=== PATIENT | male | born 1970 | race Caucasian/White ===

== ENCOUNTER 2019-03-03 18:51 | Emergency (ER) | payer BC, OTHER ==
[2019-03-03 19:09] VITALS: BP 154/89
[2019-03-03] MEDS ORDERED: Azithromycin TAB* 250 MG PO ONE (19:42)
[2019-03-03] MEDS ORDERED: guaiFENesin/CODIEN 100MG-10MG* 5 ML UDC PO ONE (19:43)
--- NOTE | 2019-03-03 19:58 | UC ---
Respiratory Complaint HPI - HPI Summary HPI Summary: 48 year old male with PMH + for HTN, presents with cough, chills, tactile fever , rib pain x 3 week. S/S wax and wane, however increasing since 3 weeks ago with worsening of cough. + productive over past 2-3 days with dark yellow sputum. no h/o PNA, asthma. no exposure to bird/ bat feces. 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[employer], [employer] computer science teacher - History of Current Complaint Chief Complaint: UCGeneralIllness Stated Complaint: COUGH/CONGESTION Time Seen by Provider: 03/03/19 19:23 Hx Obtained From: Patient Onset/Duration: Sudden Onset, Lasting Weeks, Still Present Timing: Constant Severity Currently: None Pain Intensity: 0 Pain Scale Used: 0-10 Numeric Character: Cough: Productive - yellow Alleviating Factors: Upright Position Associated Signs And Symptoms: Positive: Chills, Pleuritic Chest Pain, URI, Nasal Congestion - Allergies/Home Medications Allergies/Adverse Reactions: Allergies Allergy/AdvReac Type Severity Reaction Status Date / Time No Known Allergies Allergy Verified 03/03/19 19:08 Home Medications: Home Medications Ramipril 1.25 mg PO DAILY 03/03/19 [History Confirmed 03/03/19] PMH/Surg Hx/FS Hx/Imm Hx Previously Healthy: Yes - Surgical History Surgical History: Yes Surgery Procedure, Year, and Place: right thumb surgery , appy, nasal surgery d/ t broken x3 - Family History Known Family History: Positive: Non-Contributory - Social History Alcohol Use: Occasionally Substance Use Type: None Smoking Status (MU): Never Smoked Tobacco Review of Systems All Other Systems Reviewed And Are Negative: Yes Constitutional: Positive: Chills, Fatigue ENT: Positive: Sinus Congestion Respiratory: Positive: Shortness Of Breath, Cough Is Patient Immunocompromised?: No Physical Exam Triage Information Reviewed: Yes Appearance: No Pain Distress, Well-Nourished, Ill-Appearing - moderately Vital Signs: Initial Vital Signs Temp 99.1 F 03/03/19 19:03 Pulse 74 03/03/19 19:03 Resp 16 03/03/19 19:03 BP 154/89 03/03/19 19:03 Pulse Ox 100 03/03/19 19:03 Vital Signs Reviewed: Yes Eyes: Positive: Conjunctiva Clear ENT: Positive: Pharynx normal, TMs normal, Uvula midline. Negative: TM bulging , TM dull, TM red, Tonsillar swelling, Tonsillar exudate, Sinus tenderness Neck: Positive: Supple, Nontender, No Lymphadenopathy. Negative: Nuchal Rigidity, Enlarged Nodes @ Respiratory: Positive: Chest non-tender, Lungs clear, Normal breath sounds, No respiratory distress, No accessory muscle use. Negative: Respiratory distress, Decreased breath sounds Cardiovascular: Positive: No Murmur, Tachycardia Neurological Exam: Normal Psychological Exam: Normal Skin Exam: Normal Respiratory Course/Dx - Course Course Of Treatment: Due to length of time and severity of symptoms, treat for bronchitis with possible bacterial superimposed infection, abx, steroids, albuterol. - Steroids to help with cough, spasms, take daily, titrate as directed - Albuterol inhaler as needed to help with cough - Antibiotics as directed - Tylenol/ Motrin as needed for pain - IF no improvement of symptoms within 2-3 days, follow up with primary physician - Codeine/ guaifensin for cough at bedtime - Differential Dx/Diagnosis Differential Diagnosis/HQI/PQRI: Asthma, Sinusitis Provider Diagnosis: Acute bronchitis Discharge - Sign-Out/Discharge Documenting (check all that apply): Patient Departure All imaging exams completed and their final reports reviewed: No Studies - Discharge Plan Condition: Good Disposition: HOME Prescriptions: Albuterol HFA INHALER* [Ventolin HFA Inhaler*] 1 - 2 puff INH Q6H PRN #1 mdi PRN Reason: shortness of breath, coughing Azithromycin TAB* [Zithromax TAB (Z-HOANG) 250 mg #6 tabs] 250 mg PO DAILY #4 tab Codeine Phosphate/Guaifenesin [Codeine/Guaifenesin 100-10 mg/5Ml] 5 ml PO BEDTIME PRN #20 ml MDD 5ml PRN Reason: Cough methylPREDNISolone [Medrol] 4 mg PO DAILY #1 [email or web address] Patient Education Materials: Acute Bronchitis (ED), Bronchospasm (ED) Referrals: Braulio Hitchcock DO [Primary Care Provider] - Additional Instructions: - Steroids to help with cough, spasms, take daily, titrate as directed - Albuterol inhaler as needed to help with cough - Antibiotics as directed - Tylenol/ Motrin as needed for pain - IF no improvement of symptoms within 2-3 days, follow up with primary physician - Codeine/ guaifensin for cough at bedtime - Billing Disposition and Condition Condition: GOOD Disposition: Home
== END 2019-03-03 20:00 | disposition home or self-care (01) ==
LOC: UCCORT 18:51
DX: J20.9 Acute bronchitis, unspecified (principal); I10 Essential (primary) hypertension
CPT/HCPCS: 99202; A9270-GY; G0463